=== PATIENT | female | born 1965 | race Caucasian/White ===

== ENCOUNTER 2021-02-28 20:59 | Emergency (ER) | payer BC ==
[~2021-02-28] VITALS: Ht 165.1 cm; Wt 103.3 kg
[2021-02-28] MEDS ORDERED: LIDOCAINE 2% MDV 20ML VIAL SC ONE (22:25)
[2021-02-28] MEDS ORDERED: BACT800T5 PO (22:59)
[2021-02-28] MEDS ORDERED: BACTRIM 160MG/800MG DS TAB PO ONE (23:00)
[2021-02-28 23:36] VITALS: BP 174/90
== END 2021-02-28 23:44 | disposition home or self-care (01) ==
LOC: M ED 20:59
DX: S91.202A Unspecified open wound of left great toe with damage to nail, initial encounter (principal); Y92.9 Unspecified place or not applicable; Y93.9 Activity, unspecified; Y99.9 Unspecified external cause status; Z88.8 Allergy status to other drugs, medicaments and biological substances